=== PATIENT | male | born 1980 | race Caucasian/White ===

== ENCOUNTER 2016-05-21 02:50 | Emergency (ER) | payer OTHER ==
--- NOTE | 2016-05-21 03:38 | ED ORDER SUMMARY ---
..... Patient: MONA KOEHLER OrderSheet [facility] VisitID: [id number] [address] [place] [address] 36y, M Registration Date/Time: 05/21/2016 ORDER SHEET Weight: 70.3 kg (stated) Allergies: Penicillin GENERAL ORDERS: Culture, Wound Surface (Face) (nose abcess) Urgent (03:38 05/21/2016 Jerilyn MARLEY) (Ack 3:46 SRedmond) (3:49 HSoule) MEDICATION ORDERS: IV FLUIDS: ORDER SHEET NOTES: [Electronically signed by Flakita Cesar (03:54 05/21/2016)] [Electronically signed by Stefan Mac MD (12:24 05/23/2016)] [Electronically locked/signed by Flakita Cesar (03:54 05/21/2016)]
--- NOTE | 2016-05-21 03:38 | ED CLINICAL REPORT ---
Clinical Report - Physicians/Mid Levels [facility] [address] [place] [address] 05/21/2016 2:55 Patient: MONA KOEHLER Time Seen: 03:19. Arrived- By private vehicle. Historian- patient. HISTORY OF PRESENT ILLNESS Chief Complaint: LESION. This started yesterday and is still present. It was gradual in onset and has been constant. It is described as painful. It has been located on the nose. A possible cause has been identified (he says that he had an ingrown hair in his nose that he "picked it" and became more swollen and painful. He has noted a scant amount of pus draining from the inside of his nose. He is concerned though as the outside of his nose now has become red and swollen). Similar symptoms previously: None. REVIEW OF SYSTEMS No chills, fever, sweats, calf pain or chest pain. No cough, difficulty breathing, pedal edema, palpitations or abdominal pain. No constipation, diarrhea, nausea, vomiting or urinary problems. All systems otherwise negative, except as recorded above. SOCIAL HISTORY Current every day heavy tobacco smoker (cigarette)- 1 pack per day. History of occasional drug use: marijuana. No alcohol use. FAMILY HISTORY Denies family medical history. ADDITIONAL NOTES The nursing notes have been reviewed. PHYSICAL EXAM Vital Signs: 05/21/2016 03:04 BP: 160/88. HR: 66. RR: 20. O2 saturation: 98%. Temp: 98.2 F. Pain level now: 3/10. Appearance: Alert. Eyes: Pupils equal, round and reactive to light. ENT: Pharynx normal. Neck: Neck supple. No lymphadenopathy. CVS: Normal heart rate and rhythm. Heart sounds normal. Respiratory: No respiratory distress. Breath sounds normal. Abdomen: Nontender. No organomegaly. Skin: Single small abscess with fluctuance and pointing (inside the lateral aspect of his right nare. I unroofed this with an 18-gauge needle and expressed approximately 2 mls of purulent material which was cultured.). Extremities: Normal external inspection. No calf tenderness. Neuro: No motor deficit. No sensory deficit. LABS, X-RAYS, AND EKG Laboratory Tests: Culture, Wound Surface: (JONATHON: 05/21/2016 03:30) ( MsgRcvd 05/23/2016 11:30) Final results SPECIMEN DESCRIPTION: NOSE ABCESS Test Result Flag Units (Reference) GRAM STAIN, WOUND, SUPERFICIAL DATE: 05/21/16 GRAM POSITIVE COCCI: MODERATE WHITE BLOOD CELLS: RARE CULTURE, WOUND, SUPERFICIAL DATE: 05/23/16 PRELIM REPORT: FINAL REPORT -- MRSA GROWTH: HEAVY GROWTH MRSA ISOLATED?: MRSA ISOLATED * AMOXICILLIN/CLAVULANATE AMPICILLIN AMPICILLIN/SULBACTAM CEFAZOLIN CEFTRIAXONE CEPHALOTHIN CIPROFLOXACIN S CLINDAMYCIN S DAPTOMYCIN S ERYTHROMYCIN R GENTAMICIN S LEVOFLOXACIN S LINEZOLID S NITROFURANTOIN OXACILLIN R PENICILLIN TRIMETHOPRIM/SULFAMETHOXAZOLE S VANCOMYCIN S GENTAMICIN SYNERGY SCREEN . PROGRESS AND PROCEDURES Patient/family counseled. Old medical records ordered. Old records unavailable. Disposition: Discharged. Condition: stable. CLINICAL IMPRESSION Cellulitis of the nose. Single deep abscess to the face. MRSA (Methicillin resistant Staph aureus). INSTRUCTIONS Warnings: Further evaluation is necessary. GENERAL WARNINGS: Return or contact your physician immediately if your condition worsens or changes unexpectedly, if not improving as expected, or if other problems arise. Prescription Medications: Clindamycin 300 mg: take 1 capsule orally every 6 hours for 10 days. No refill. Bactroban Nasal ointment 2% : apply small amount to each nostril three times daily for 1 week. Dispense ten (10) 1 gram tubes. No refills. Substitution is permissible. Understanding of the discharge instructions verbalized by patient. Follow-up with: [facility], , , [address], , [place], [address] Follow up Monday in two days. Call for an appointment. (Electronically signed by Stefan Mac MD 05/23/2016 12:24)
--- NOTE | 2016-05-21 03:38 | ED CLINICAL REPORT ---
Clinical Report - Physicians/Mid Levels [facility] [address] [place] [address] 05/21/2016 2:55 Patient: MONA KOEHLER Time Seen: 03:19. Arrived- By private vehicle. Historian- patient. HISTORY OF PRESENT ILLNESS Chief Complaint: LESION. This started yesterday and is still present. It was gradual in onset and has been constant. It is described as painful. It has been located on the nose. A possible cause has been identified (he says that he had an ingrown hair in his nose that he "picked it" and became more swollen and painful. He has noted a scant amount of pus draining from the inside of his nose. He is concerned though as the outside of his nose now has become red and swollen). Similar symptoms previously: None. REVIEW OF SYSTEMS No chills, fever, sweats, calf pain or chest pain. No cough, difficulty breathing, pedal edema, palpitations or abdominal pain. No constipation, diarrhea, nausea, vomiting or urinary problems. All systems otherwise negative, except as recorded above. SOCIAL HISTORY Current every day heavy tobacco smoker (cigarette)- 1 pack per day. History of occasional drug use: marijuana. No alcohol use. FAMILY HISTORY Denies family medical history. ADDITIONAL NOTES The nursing notes have been reviewed. PHYSICAL EXAM Vital Signs: 05/21/2016 03:04 BP: 160/88. HR: 66. RR: 20. O2 saturation: 98%. Temp: 98.2 F. Pain level now: 3/10. Appearance: Alert. Eyes: Pupils equal, round and reactive to light. ENT: Pharynx normal. Neck: Neck supple. No lymphadenopathy. CVS: Normal heart rate and rhythm. Heart sounds normal. Respiratory: No respiratory distress. Breath sounds normal. Abdomen: Nontender. No organomegaly. Skin: Single small abscess with fluctuance and pointing (inside the lateral aspect of his right nare. I unroofed this with an 18-gauge needle and expressed approximately 2 mls of purulent material which was cultured.). Extremities: Normal external inspection. No calf tenderness. Neuro: No motor deficit. No sensory deficit. LABS, X-RAYS, AND EKG Laboratory Tests: Culture, Wound Surface: (JONATHON: 05/21/2016 03:30) ( MsgRcvd 05/23/2016 11:30) Final results SPECIMEN DESCRIPTION: NOSE ABCESS Test Result Flag Units (Reference) GRAM STAIN, WOUND, SUPERFICIAL DATE: 05/21/16 GRAM POSITIVE COCCI: MODERATE WHITE BLOOD CELLS: RARE CULTURE, WOUND, SUPERFICIAL DATE: 05/23/16 PRELIM REPORT: FINAL REPORT -- MRSA GROWTH: HEAVY GROWTH MRSA ISOLATED?: MRSA ISOLATED * AMOXICILLIN/CLAVULANATE AMPICILLIN AMPICILLIN/SULBACTAM CEFAZOLIN CEFTRIAXONE CEPHALOTHIN CIPROFLOXACIN S CLINDAMYCIN S DAPTOMYCIN S ERYTHROMYCIN R GENTAMICIN S LEVOFLOXACIN S LINEZOLID S NITROFURANTOIN OXACILLIN R PENICILLIN TRIMETHOPRIM/SULFAMETHOXAZOLE S VANCOMYCIN S GENTAMICIN SYNERGY SCREEN . PROGRESS AND PROCEDURES Patient/family counseled. Old medical records ordered. Old records unavailable. Disposition: Discharged. Condition: stable. CLINICAL IMPRESSION Cellulitis of the nose. Single deep abscess to the face. MRSA (Methicillin resistant Staph aureus). INSTRUCTIONS Warnings: Further evaluation is necessary. GENERAL WARNINGS: Return or contact your physician immediately if your condition worsens or changes unexpectedly, if not improving as expected, or if other problems arise. Prescription Medications: Clindamycin 300 mg: take 1 capsule orally every 6 hours for 10 days. No refill. Bactroban Nasal ointment 2% : apply small amount to each nostril three times daily for 1 week. Dispense ten (10) 1 gram tubes. No refills. Substitution is permissible. Understanding of the discharge instructions verbalized by patient. Follow-up with: [facility], , , [address], , [place], [address] Follow up Monday in two days. Call for an appointment. (Electronically signed by Stefan Mac MD 05/23/2016 12:24)
--- NOTE | 2016-05-21 03:38 | ED ORDER SUMMARY ---
..... Patient: MONA KOEHLER OrderSheet [facility] VisitID: [id number] [address] [place] [address] 36y, M Registration Date/Time: 05/21/2016 ORDER SHEET Weight: 70.3 kg (stated) Allergies: Penicillin GENERAL ORDERS: Culture, Wound Surface (Face) (nose abcess) Urgent (03:38 05/21/2016 Jerilyn MARLEY) (Ack 3:46 SRedmond) (3:49 HSoule) MEDICATION ORDERS: IV FLUIDS: ORDER SHEET NOTES: [Electronically signed by Flakita Cesar (03:54 05/21/2016)] [Electronically signed by Stefan Mac MD (12:24 05/23/2016)] [Electronically locked/signed by Flakita Cesar (03:54 05/21/2016)]
--- NOTE | 2016-05-21 03:38 | ED NURSING NOTES ---
Clinical Report - Nurses [facility] [address] [place] [address] 05/21/2016 2:55 [id number] Triage time 03:04 May 21 2016. Acuity: LEVEL 3. Chief Complaint: (Swollen/Red Nose). SEPSIS SCREEN: Sepsis Screen: negative. Infection suspected/documented. DEMETRIS COMA SCORE: [place] Coma Scale: 15- eyes open spontaneously (4); best verbal response- oriented x 4 (5); best motor response- obeys commands (6). --03:07 Flakita Cesar 03:04 05/21/16. BP: 160/88. HR: 66. RR: 20. O2 saturation: 98% on room air. Temp: 98.2 F (oral). Pain level now: 04/22. --03:07 Flakita Cesar. Weight: 70.3 kg stated. Height/Length: 69 inches Per Patient. BMI: 22.9. --03:06 Flakita Cesar. Medications None. --03:07 Flakita Cesar. Allergies Penicillin. --03:07 Flakita Cesar. History Arrived by private vehicle. Historian: patient. Unaccompanied. Primary physician (none). This started yesterday. ( Patient states that he scratched the inside of his nose yesterday and that shortly after it became tender. He states he woke to find that it had become swollen and red.). PAST MEDICAL HX: Immunizations: up-to-date. SOCIAL HX: Heavy tobacco smoker (cigarette)- 1 pack per day. History of drug use: marijuana. No alcohol use. No infectious disease exposure. ABUSE ASSESSMENT: No report of abuse. SELF HARM ASSESSMENT: A self harm assessment was performed. The patient answered "no" to the question "Have you recently felt down, depressed, or hopeless?", "Have you noticed less interest or pleasure in doing things?", "Do you have thoughts of harming or killing yourself?", "Are you here because you tried to hurt yourself?", "Have you ever tried to hurt yourself before today?", "Have you recently had thoughts about harming or killing others?" and "Do you have any dangerous items in your possession?". FALL RISK ASSESSMENT: Fall risk assessment completed. No fall risk identified. NUTRITIONAL RISK ASSESSMENT: The nutritional risk assessment revealed no deficiencies. FUNCTIONAL ASSESSMENT: Functional assessment: no impairments noted. LEARNING NEEDS ASSESSMENT: The learning needs assessment revealed no barriers. SKIN INTEGRITY ASSESSMENT: Skin integrity risk assessment completed. No skin integrity risk identified. --03:07 Flakita Cesar. PROBLEMS: no known problems. ADDITIONAL SURGERIES: Knee Surgery. --03:07 Flakita Cesar. Interventions ID band on patient. To treatment room. --03:07 Flakita Cesar. PHYSICAL ASSESSMENT Ambulatory to room. ( Area of redness and swelling over the right nare of the nose and into the occipital area.). GENERAL / NEURO / PSYCH: Alert. Oriented X 4. Appears in no acute distress. HEENT: Mucous membranes are pink. RESPIRATORY: Respirations not labored. CVS: Normal sinus rhythm noted. SKIN: Skin is warm and dry. --03:08 Flakita Cesar. NURSING PROGRESS NOTES 03:08 05/21/16. Pulse oximeter and NIBP monitor placed on patient; monitor alarms on. Reassurance given to the patient. Two patient identifiers checked. Call light placed in reach. Side rails up x 1. Bed placed in lowest position. Brakes of bed on. Patient ready for evaluation- chart flagged and ED physician notified. --03:08 Flakita Cesar 03:20 05/21/16. Patient ID band checked for patient name and birthdate: patient confirmed. Wound swabbed for culture; collected by nurse. Specimen labeled in the presence of the patient (nose). --03:54 Flakita Cesar. DISPOSITION / DISCHARGE 03:40 05/21/16. Condition at departure: improved and stable. The goals identified in the patient's plan of care were met. No learning barriers present. Discharge instructions provided and reviewed with the patient. Reviewed medication(s) side effects, precautions, dosing and course information. Prescription(s) given to the patient. Reviewed skin care instructions. Patient verbalized understanding. Written instructions provided in French. ( Follow up with [facility] in two days. Return if symptoms worsen. Watch for worsening signs of infection. Patient verbalized understanding and had no questions at this time.). The patient was discharged by the physician. He was discharged home and unaccompanied at time of discharge. He left the Emergency Department ambulatory and via private vehicle. Patient driving. FALL RISK ASSESSMENT: Fall risk assessment completed. No fall risk identified. --03:53 Flakita Cesar 03:49 05/21/16. BP: 148/95. HR: 60. RR: 20. O2 saturation: 97% on room air. Temp: 98 F (oral). Pain level now: 04/22. --03:53 Flakita Cesar. Locked/Released at 05/21/2016 3:54 by Flakita Cesar,
--- NOTE | 2016-05-23 12:24 | ED MED RECONCILIATION SUMMARY ---
Patient: MONA KOEHLER Medication Reconciliation Report [facility] VisitID: [id number] [address] [place] [address] 36y, M Registration Date/Time: 05/21/2016 Weight: 70.3 kg Height/Length: 69 in. BMI: 22.9 ALLERGIES: Penicillin The patient's Home Medications are listed below: NONE. The source(s) of the original Home Medication information: Not obtained. The following Medications were given to the patient in the Emergency Department: None. The following Medications were prescribed to the patient: Clindamycin 300 mg: take 1 capsule orally every 6 hours for 10 days. No refill. -- Stefan Mac MD Bactroban Nasal ointment 2% : apply small amount to each nostril three times daily for 1 week. Dispense ten (10) 1 gram tubes. No refills. Substitution is permissible. -- Stefan Mac MD
--- NOTE | 2016-05-23 12:24 | ED MAR SUMMARY ---
..... Medication Administration Record [facility] [address] [place], [place] [id number] Patient: MONA KOEHLER Visit ID: [id number] 36y, M Weight: 70.3 kg Height/Length: 69 in BMI: 22.9 ALLERGIES: Penicillin
--- NOTE | 2016-05-23 12:24 | ED MAR SUMMARY ---
..... Medication Administration Record [facility] [address] [place], [place] [id number] Patient: MONA KOEHLER Visit ID: [id number] 36y, M Weight: 70.3 kg Height/Length: 69 in BMI: 22.9 ALLERGIES: Penicillin
--- NOTE | 2016-05-23 12:24 | ED MED RECONCILIATION SUMMARY ---
Patient: MONA KOEHLER Medication Reconciliation Report [facility] VisitID: [id number] [address] [place] [address] 36y, M Registration Date/Time: 05/21/2016 Weight: 70.3 kg Height/Length: 69 in. BMI: 22.9 ALLERGIES: Penicillin The patient's Home Medications are listed below: NONE. The source(s) of the original Home Medication information: Not obtained. The following Medications were given to the patient in the Emergency Department: None. The following Medications were prescribed to the patient: Clindamycin 300 mg: take 1 capsule orally every 6 hours for 10 days. No refill. -- Stefan Mac MD Bactroban Nasal ointment 2% : apply small amount to each nostril three times daily for 1 week. Dispense ten (10) 1 gram tubes. No refills. Substitution is permissible. -- Stefan Mac MD
--- NOTE | 2016-05-23 12:24 | ED DISCHARGE INSTRUCTIONS ---
Patient: MONA KOEHLER General Instructions [facility] VisitID: [id number] [address] [place] [address] 36y, M Registration Date/Time: 05/21/2016 Cellulitis of the nose. Single deep abscess to the face. MRSA (Methicillin resistant Staph aureus). INSTRUCTIONS Warnings: Further evaluation is necessary. GENERAL WARNINGS: Return or contact your physician immediately if your condition worsens or changes unexpectedly, if not improving as expected, or if other problems arise. Prescription Medications: Clindamycin 300 mg: take 1 capsule orally every 6 hours for 10 days. No refill. Bactroban Nasal ointment 2% : apply small amount to each nostril three times daily for 1 week. Dispense ten (10) 1 gram tubes. No refills. Substitution is permissible. Understanding of the discharge instructions verbalized by patient. Follow-up with: [facility], , , [address], , [place], [id number] Follow up Monday in two days. Call for an appointment. ADDITIONAL INFORMATION Facial Cellulitis You have an infection of the skin known as cellulitis. This usually starts with a scrape, cut or insect bite which becomes infected. It may also occur from an infected oil gland (pimple) or hair follicle. This can be a serious condition and must be watched closely to be sure the infection is not spreading. With antibiotic treatment, the size of the red area will gradually shrink in size until the skin returns to normal. This will take 7-10 days. The red area should never increase in size once the antibiotic medicine has been started. Occasionally, an infection will be resistant to one antibiotic and another one will have to be used. Home Care: 1) Take all of the antibiotic medicine exactly as prescribed until it is gone. Be careful not to miss any doses, especially during the first few days. 2) A cool compress (face cloth soaked in cool water) applied to the face may help with the swelling and pain. 3) You may use acetaminophen (Tylenol) or ibuprofen (Motrin, Advil) to control pain, unless another medicine was prescribed. [ NOTE : If you have chronic liver or kidney disease or ever had a stomach ulcer or GI bleeding, talk with your doctor before using these medicines.] (Aspirin should never be used in anyone under 18 years of age who is ill with a fever. It may cause severe liver damage.) Follow Up with your doctor or this facility as directed. Check the infected area daily for the warning signs listed below. Get Prompt Medical Attention if any of the following occur: -- Increasing area of redness, swelling or pain -- Pus or fluid drainage from the skin or the eye -- Fever of 100.5 F (38 C) oral or 101.5 F (38.6 C) rectal for more than two days on antibiotics -- Eyelid swells shut -- Increasing headache or neck pain -- Unusual drowsiness or confusion -- Convulsion (seizure) Abscess [Incision & Drainage] An abscess (sometimes called a boil) occurs when bacteria get trapped under the skin and begin to grow. Pus forms inside the abscess as the body responds to the bacteria. An abscess can occur with an insect bite, ingrown hair, blocked oil gland, pimple, cyst, or puncture wound. Treatment of your abscess has required an incision to drain the pus. If the abscess pocket was large, a gauze packing may have been inserted. This will need to be removed and possibly replaced on your next visit. Antibiotics are not required in the treatment of a simple abscess, unless the infection is spreading into the skin around the wound (known as cellulitis). Healing of the wound will take about one to two weeks depending on the size of the abscess. Healthy tissue will grow from the bottom and sides of the opening until it seals over. Home Care: The wound may drain for the first two days. Cover the wound with a clean dry dressing. If the dressing becomes soaked with blood or pus, change it. If a gauze packing was placed inside the abscess cavity, you may be advised to remove it yourself. You may do this in the shower. Once the packing is removed, you should wash the area in the shower or bath 3 to 4 times a day, until the skin opening has closed. If you were prescribed antibiotics, take them as directed until they are all gone. You may use acetaminophen (Tylenol) or ibuprofen (Motrin, Advil) to control pain, unless another pain medicine was prescribed. [ NOTE: If you have liver disease or ever had a stomach ulcer, talk with your doctor before using these medicines.] Follow Up with your doctor as advised by our staff. If a gauze packing was inserted in your wound, it should be removed in 1-2 days. Check your wound every day for the signs of worsening infection listed below. Get Prompt Medical Attention if any of the following occur: Increasing redness or swelling Red streaks in the skin leading away from the wound Increasing local pain or swelling Continued pus draining from the wound two days after treatment Fever of 100.4F (38C) or higher, or as directed by your healthcare provider Clindamycin Hydrochloride Oral capsule What is this medicine? CLINDAMYCIN (NITISH Lyons) is a lincosamide antibiotic. It is used to treat certain kinds of bacterial infections. It will not work for colds, flu, or other viral infections. How should I use this medicine? Take this medicine by mouth with a full glass of water. Follow the directions on the prescription label. You can take this medicine with food or on an empty stomach. If the medicine upsets your stomach, take it with food. Take your medicine at regular intervals. Do not take your medicine more often than directed. Take all of your medicine as directed even if you think your are better. Do not skip doses or stop your medicine early. Talk to your home aide regarding the use of this medicine in children. Special care may be needed. What side effects may I notice from receiving this medicine? Side effects that you should report to your doctor or health medicare sales representative as soon as possible: allergic reactions like skin rash, itching or hives, swelling of the face, lips, or tongue dark urine pain on swallowing redness, blistering, peeling or loosening of the skin, including inside the mouth unusual bleeding or bruising unusually weak or tired yellowing of eyes or skin Side effects that usually do not require medical attention (report to your doctor or health medicare sales representative if they continue or are bothersome): diarrhea itching in the rectal or genital area joint pain nausea, vomiting stomach pain What may interact with this medicine? chloramphenicol erythromycin kaolin products What if I miss a dose? If you miss a dose, take it as soon as you can. If it is almost time for your next dose, take only that dose. Do not take double or extra doses. Where should I keep my medicine? Keep out of the reach of children. Store at room temperature between 20 and 25 degrees C (68 and 77 degrees F). Throw away any unused medicine after the expiration date. What should I tell my health care provider before I take this medicine? They need to know if you have any of these conditions: kidney disease liver disease stomach problems like colitis an unusual or allergic reaction to clindamycin, lincomycin, or other medicines, foods, dyes like tartrazine or preservatives or trying to get breast-feeding What should I watch for while using this medicine? Tell your doctor or healthcare professional if your symptoms do not start to get better or if they get worse. Do not treat diarrhea with over the counter products. Contact your doctor if you have diarrhea that lasts more than 2 days or if it is severe and watery. Mupirocin Calcium Nasal ointment What is this medicine? MUPIROCIN CALCIUM (myoo PEER oh sin ALEXANDRO see um) is an antibiotic. It is used inside the nose to treat infections that are caused by certain bacteria. This helps prevent the spread of infection to patients and health care workers during outbreaks at institutions. How should I use this medicine? This medicine is only for use inside the nose. Follow the directions on the prescription label. Wash your hands before and after use. Squeeze half the contents of a single-use tube into one nostril, then squeeze the other half into the other nostril. Press the sides of your nose together and gently massage after application to spread the ointment throughout the nostrils. Do not use your medicine more often than directed. Finish the full course of medicine prescribed by your doctor or health medicare sales representative even if you think your condition is better. Talk to your home aide regarding the use of this medicine in children. Special care may be needed. What side effects may I notice from receiving this medicine? Side effects that you should report to your doctor or health medicare sales representative as soon as possible: severe irritation, burning, stinging, or pain Side effects that usually do not require medical attention (report to your doctor or health medicare sales representative if they continue or are bothersome): altered taste cough headache skin itching sore throat stuffy or runny nose What may interact with this medicine? Interactions are not expected. Do not use any other nose products without telling your doctor or health medicare sales representative. What if I miss a dose? If you miss a dose, take it as soon as you can. If it is almost time for your next dose, take only that dose. Do not take double or extra doses. Where should I keep my medicine? Keep out of the reach of children. Store at room temperature between 15 and 30 degrees C (59 and 86 degrees F). Do not refrigerate. One tube of ointment is for single use in both nostrils. Throw away after use. What should I tell my health care provider before I take this medicine? They need to know if you have any of these conditions: an unusual or allergic reaction to mupirocin, other medicines, foods, dyes, or preservatives or trying to get breast-feeding What should I watch for while using this medicine? If your nose is severely irritated, burning or stinging from use of this medicine, stop using it and contact your doctor or health medicare sales representative. Do not get this medicine in your eyes. If you do, rinse out with plenty of cool tap water. You have been given the following additional information: Cellulitis, Facial Abscess, Incision And Drainage Clindamycin Hydrochloride Oral capsule Mupirocin Calcium Nasal ointment (Electronically signed by Stefan Mac MD 05/23/2016 12:24)
--- NOTE | 2016-05-23 12:24 | ED DISCHARGE INSTRUCTIONS ---
Patient: MONA KOEHLER General Instructions [facility] VisitID: [id number] [address] [place] [address] 36y, M Registration Date/Time: 05/21/2016 Cellulitis of the nose. Single deep abscess to the face. MRSA (Methicillin resistant Staph aureus). INSTRUCTIONS Warnings: Further evaluation is necessary. GENERAL WARNINGS: Return or contact your physician immediately if your condition worsens or changes unexpectedly, if not improving as expected, or if other problems arise. Prescription Medications: Clindamycin 300 mg: take 1 capsule orally every 6 hours for 10 days. No refill. Bactroban Nasal ointment 2% : apply small amount to each nostril three times daily for 1 week. Dispense ten (10) 1 gram tubes. No refills. Substitution is permissible. Understanding of the discharge instructions verbalized by patient. Follow-up with: [facility], , , [address], , [place], [id number] Follow up Monday in two days. Call for an appointment. ADDITIONAL INFORMATION Facial Cellulitis You have an infection of the skin known as cellulitis. This usually starts with a scrape, cut or insect bite which becomes infected. It may also occur from an infected oil gland (pimple) or hair follicle. This can be a serious condition and must be watched closely to be sure the infection is not spreading. With antibiotic treatment, the size of the red area will gradually shrink in size until the skin returns to normal. This will take 7-10 days. The red area should never increase in size once the antibiotic medicine has been started. Occasionally, an infection will be resistant to one antibiotic and another one will have to be used. Home Care: 1) Take all of the antibiotic medicine exactly as prescribed until it is gone. Be careful not to miss any doses, especially during the first few days. 2) A cool compress (face cloth soaked in cool water) applied to the face may help with the swelling and pain. 3) You may use acetaminophen (Tylenol) or ibuprofen (Motrin, Advil) to control pain, unless another medicine was prescribed. [ NOTE : If you have chronic liver or kidney disease or ever had a stomach ulcer or GI bleeding, talk with your doctor before using these medicines.] (Aspirin should never be used in anyone under 18 years of age who is ill with a fever. It may cause severe liver damage.) Follow Up with your doctor or this facility as directed. Check the infected area daily for the warning signs listed below. Get Prompt Medical Attention if any of the following occur: -- Increasing area of redness, swelling or pain -- Pus or fluid drainage from the skin or the eye -- Fever of 100.5 F (38 C) oral or 101.5 F (38.6 C) rectal for more than two days on antibiotics -- Eyelid swells shut -- Increasing headache or neck pain -- Unusual drowsiness or confusion -- Convulsion (seizure) Abscess [Incision & Drainage] An abscess (sometimes called a boil) occurs when bacteria get trapped under the skin and begin to grow. Pus forms inside the abscess as the body responds to the bacteria. An abscess can occur with an insect bite, ingrown hair, blocked oil gland, pimple, cyst, or puncture wound. Treatment of your abscess has required an incision to drain the pus. If the abscess pocket was large, a gauze packing may have been inserted. This will need to be removed and possibly replaced on your next visit. Antibiotics are not required in the treatment of a simple abscess, unless the infection is spreading into the skin around the wound (known as cellulitis). Healing of the wound will take about one to two weeks depending on the size of the abscess. Healthy tissue will grow from the bottom and sides of the opening until it seals over. Home Care: The wound may drain for the first two days. Cover the wound with a clean dry dressing. If the dressing becomes soaked with blood or pus, change it. If a gauze packing was placed inside the abscess cavity, you may be advised to remove it yourself. You may do this in the shower. Once the packing is removed, you should wash the area in the shower or bath 3 to 4 times a day, until the skin opening has closed. If you were prescribed antibiotics, take them as directed until they are all gone. You may use acetaminophen (Tylenol) or ibuprofen (Motrin, Advil) to control pain, unless another pain medicine was prescribed. [ NOTE: If you have liver disease or ever had a stomach ulcer, talk with your doctor before using these medicines.] Follow Up with your doctor as advised by our staff. If a gauze packing was inserted in your wound, it should be removed in 1-2 days. Check your wound every day for the signs of worsening infection listed below. Get Prompt Medical Attention if any of the following occur: Increasing redness or swelling Red streaks in the skin leading away from the wound Increasing local pain or swelling Continued pus draining from the wound two days after treatment Fever of 100.4F (38C) or higher, or as directed by your healthcare provider Clindamycin Hydrochloride Oral capsule What is this medicine? CLINDAMYCIN (NITISH Lyons) is a lincosamide antibiotic. It is used to treat certain kinds of bacterial infections. It will not work for colds, flu, or other viral infections. How should I use this medicine? Take this medicine by mouth with a full glass of water. Follow the directions on the prescription label. You can take this medicine with food or on an empty stomach. If the medicine upsets your stomach, take it with food. Take your medicine at regular intervals. Do not take your medicine more often than directed. Take all of your medicine as directed even if you think your are better. Do not skip doses or stop your medicine early. Talk to your top lift compressor regarding the use of this medicine in children. Special care may be needed. What side effects may I notice from receiving this medicine? Side effects that you should report to your doctor or health patient care specialist as soon as possible: allergic reactions like skin rash, itching or hives, swelling of the face, lips, or tongue dark urine pain on swallowing redness, blistering, peeling or loosening of the skin, including inside the mouth unusual bleeding or bruising unusually weak or tired yellowing of eyes or skin Side effects that usually do not require medical attention (report to your doctor or health patient care specialist if they continue or are bothersome): diarrhea itching in the rectal or genital area joint pain nausea, vomiting stomach pain What may interact with this medicine? chloramphenicol erythromycin kaolin products What if I miss a dose? If you miss a dose, take it as soon as you can. If it is almost time for your next dose, take only that dose. Do not take double or extra doses. Where should I keep my medicine? Keep out of the reach of children. Store at room temperature between 20 and 25 degrees C (68 and 77 degrees F). Throw away any unused medicine after the expiration date. What should I tell my health care provider before I take this medicine? They need to know if you have any of these conditions: kidney disease liver disease stomach problems like colitis an unusual or allergic reaction to clindamycin, lincomycin, or other medicines, foods, dyes like tartrazine or preservatives or trying to get breast-feeding What should I watch for while using this medicine? Tell your doctor or healthcare professional if your symptoms do not start to get better or if they get worse. Do not treat diarrhea with over the counter products. Contact your doctor if you have diarrhea that lasts more than 2 days or if it is severe and watery. Mupirocin Calcium Nasal ointment What is this medicine? MUPIROCIN CALCIUM (myoo PEER oh sin ALEXANDRO see um) is an antibiotic. It is used inside the nose to treat infections that are caused by certain bacteria. This helps prevent the spread of infection to patients and health care workers during outbreaks at institutions. How should I use this medicine? This medicine is only for use inside the nose. Follow the directions on the prescription label. Wash your hands before and after use. Squeeze half the contents of a single-use tube into one nostril, then squeeze the other half into the other nostril. Press the sides of your nose together and gently massage after application to spread the ointment throughout the nostrils. Do not use your medicine more often than directed. Finish the full course of medicine prescribed by your doctor or health patient care specialist even if you think your condition is better. Talk to your top lift compressor regarding the use of this medicine in children. Special care may be needed. What side effects may I notice from receiving this medicine? Side effects that you should report to your doctor or health patient care specialist as soon as possible: severe irritation, burning, stinging, or pain Side effects that usually do not require medical attention (report to your doctor or health patient care specialist if they continue or are bothersome): altered taste cough headache skin itching sore throat stuffy or runny nose What may interact with this medicine? Interactions are not expected. Do not use any other nose products without telling your doctor or health patient care specialist. What if I miss a dose? If you miss a dose, take it as soon as you can. If it is almost time for your next dose, take only that dose. Do not take double or extra doses. Where should I keep my medicine? Keep out of the reach of children. Store at room temperature between 15 and 30 degrees C (59 and 86 degrees F). Do not refrigerate. One tube of ointment is for single use in both nostrils. Throw away after use. What should I tell my health care provider before I take this medicine? They need to know if you have any of these conditions: an unusual or allergic reaction to mupirocin, other medicines, foods, dyes, or preservatives or trying to get breast-feeding What should I watch for while using this medicine? If your nose is severely irritated, burning or stinging from use of this medicine, stop using it and contact your doctor or health patient care specialist. Do not get this medicine in your eyes. If you do, rinse out with plenty of cool tap water. You have been given the following additional information: Cellulitis, Facial Abscess, Incision And Drainage Clindamycin Hydrochloride Oral capsule Mupirocin Calcium Nasal ointment (Electronically signed by Stefan Mac MD 05/23/2016 12:24)
== END 2016-05-21 03:40 | disposition home or self-care (01) ==
LOC: ED SRH 02:50
DX: J34.0 Abscess, furuncle and carbuncle of nose (principal); L02.01 Cutaneous abscess of face; A49.02 Methicillin resistant Staphylococcus aureus infection, unspecified site; F17.210 Nicotine dependence, cigarettes, uncomplicated; Z88.0 Allergy status to penicillin
CPT/HCPCS: 90070; 90131; 90309; 91672